=== PATIENT | female | born 1995 | race Caucasian/White ===

== ENCOUNTER 2017-11-04 22:37 | Emergency (ER) | payer OTHER ==
[~2017-11-04] VITALS: Ht 142.2 cm; Wt 106.0 kg
[~2017-11-04 22:37] MED LIST: ATIVAN0.5 MG PO; CATAPRES0.1 MG PO; DIFLUCAN150 MG PO; FLAGYL500 MG PO; FOCALIN XR15 M1 PO; FOCALIN XR15 MG PO; FOCALIN XR20 MG PO; KEFLEX500 MG PO; MACROBID100 MG PO; MACRODANTIN100 MG PO; NAPROXEN500 MG PO; PREDNISONE20 MG PO; PROMETHAZINE HC25 M1 PO; RANITIDINE HCL150 M1 PO; ROXICODONE5 MG PO; TRAMADOL HCL50 MG PO; TRILEPTAL300 MG PO; TRILEPTAL75 MG PO; XANAX0.5 MG PO; ZOFRAN ODT4 MG PO; ZOFRAN4 MG PO; ZOLOFT25 MG PO; ZOLOFT50 MG PO
[2017-11-04 23:08] LABS: APPEARANCE CLOUDY ((CLEAR)); BILIRUBIN NEGATIVE; BLOOD SMALL; COLOR AMBER ((YELLOW)); GLUCOSE (STRIP) NEGATIVE; KETONES NEGATIVE; LEUKOCYTES NEGATIVE; NITRITE POSITIVE; PROTEIN (STRIP) NEGATIVE; SPECIFIC GRAVITY 1.016 (1.000-1.030)
[2017-11-04 23:30] LABS: EPITHELIAL CELLS 3+ /HPF; RED BLOOD CELLS 0-5 /HPF (0-5); WHITE BLOOD CELLS 0-5 /HPF (0-5)
[2017-11-04 23:31] LABS: AMORPHOUS URATES CRYSTALS 3+
[2017-11-04 23:32] LABS: BACTERIA 2+ /HPF; MUCUS NONE SEEN /LPF; UCUL ADDED? YES
[2017-11-05] MEDS ORDERED: ZOFRAN4 MG PO (00:25)
[2017-11-05] MEDS ORDERED: ZANTAC300 MG PO (00:26)
[2017-11-05] MEDS ORDERED: DIFLUCAN150 MG PO (01:02)
[2017-11-05 01:08] VITALS: BP 146/100
== END 2017-11-05 01:11 | disposition home or self-care (01) ==
LOC: EME 22:37
DX: R11.2 Nausea with vomiting, unspecified (principal); R19.7 Diarrhea, unspecified; F32.9 Major depressive disorder, single episode, unspecified; E28.2 Polycystic ovarian syndrome; F90.9 Attention-deficit hyperactivity disorder, unspecified type; F41.0 Panic disorder [episodic paroxysmal anxiety]; Z88.5 Allergy status to narcotic agent; Z88.2 Allergy status to sulfonamides; Z88.0 Allergy status to penicillin; Z91.040 Latex allergy status; F17.200 Nicotine dependence, unspecified, uncomplicated
CPT/HCPCS: 81003; 81025; 87086; 99281; 99284

== ENCOUNTER 2017-11-22 22:53 | Emergency (ER) | payer OTHER ==
[~2017-11-22] VITALS: Ht 142.2 cm; Wt 106.9 kg
[~2017-11-22 22:53] MED LIST changes: +ZANTAC300 MG PO
[2017-11-22 23:13] LABS: HEMATOCRIT 40.7 % (36.0-46.0); HEMOGLOBIN 13.5 G/DL (11.9-15.5); MCH 30.2 PG (29.0-34.0); MCHC 33.2 G/DL (30.0-36.0); MCV 91.1 FL (83-99); PLATELET COUNT 372 K/uL (156-360); RBC DIS.WIDTH-CV 14.6 % (11.8-14.6); RBC DIS.WIDTH-SD 48.3 % (39-53); RED BLOOD COUNT 4.47 M/uL (3.80-5.20); WHITE BLOOD COUNT 16.5 K/uL (4.1-10.2)
[2017-11-22 23:24] LABS: CHLORIDE 107 mEq/L (99-109); POTASSIUM 3.9 mEq/L (3.7-5.4); SODIUM 141 mEq/L (136-147)
[2017-11-22 23:26] LABS: GLUCOSE 100 mg/dL (70-99)
[2017-11-22 23:30] LABS: CREATININE 0.8 mg/dL (0.6-1.3); GFR ESTIMATE (CALCULATED) > 59 mL/min/
[2017-11-22 23:31] LABS: UREA NITROGEN (BUN) 14 mg/dL (9-23)
[2017-11-22 23:37] LABS: TROP-I INTERPRETATION NEGATIVE; TROPONIN-I < 0.01 ng/mL (0.0-0.30)
[2017-11-23 01:23] VITALS: BP 161/101
== END 2017-11-23 01:23 | disposition left against medical advice (07) ==
LOC: EME 22:53
DX: J02.9 Acute pharyngitis, unspecified (principal); J45.909 Unspecified asthma, uncomplicated; F31.9 Bipolar disorder, unspecified; F90.9 Attention-deficit hyperactivity disorder, unspecified type; F32.9 Major depressive disorder, single episode, unspecified; F41.9 Anxiety disorder, unspecified; F17.200 Nicotine dependence, unspecified, uncomplicated; Z91.040 Latex allergy status; Z88.5 Allergy status to narcotic agent; Z88.2 Allergy status to sulfonamides; Z88.0 Allergy status to penicillin; Z88.8 Allergy status to other drugs, medicaments and biological substances
CPT/HCPCS: 71046; 80048; 84484; 85027; 87081; 87651 90; 93005; 99281; 99283